=== PATIENT | female | born 1990 | race Caucasian/White ===

== ENCOUNTER 2018-07-09 15:30 | Emergency (ER) | payer BC ==
[~2018-07-09] VITALS: Ht 157.5 cm; Wt 62.6 kg
[2018-07-09 16:37] VITALS: Ht 157.5 cm; Wt 62.6 kg
[2018-07-09 17:53] LABS: BASOPHIL % 0.1 % (0-2); PLATELET COUNT 273 x10^3mcL (130-400); RED CELL DISTRIBUTION WIDTH 13.3 % (11.5-14.5)
[2018-07-09 17:57] LABS: CARBON DIOXIDE 25.9 mmol/L (21-32); CHLORIDE SERUM 106 mmol/L (98-107); CREATININE SERUM 0.7 mg/dL (0.6-1.0); GFR1 > 60 mL/min; GLUCOSE SERUM 151 mg/dL (74-106); POTASSIUM SERUM 3.8 mmol/L (3.5-5.1); SODIUM SERUM 140 mmol/L (136-145)
[2018-07-09 18:02] LABS: ALBUMIN 3.4 g/dL (3.4-5.0); ALKALINE PHOSPHATASE 44 U/L (46-116); ALT/SGPT 18 U/L (14-59); AST/SGOT 13 U/L (15-37); BILIRUBIN TOTAL 0.22 mg/dL (0.20-1.00); TOTAL PROTEIN, SERUM 6.7 g/dL (6.4-8.2)
[2018-07-09 19:45] VITALS: BP 124/84
== END 2018-07-09 19:45 | disposition home or self-care (01) ==
LOC: ED 15:30
PROVIDERS: Emergency Medicine
DX: R55 Syncope and collapse (principal); F12.10 Cannabis abuse, uncomplicated
CPT/HCPCS: J7030